=== PATIENT | male | born 1960 | race African-American/Black ===

== ENCOUNTER 2018-03-23 10:28 | Emergency (ER) | payer OTHER ==
[~2018-03-23] VITALS: Ht 177.8 cm; Wt 83.9 kg
[2018-03-23] MEDS ORDERED: SODIUM CHLORIDE 0.9% 1000ML 1,000 ML ONE (10:37)
[2018-03-23] MEDS ORDERED: MORPHINE SULFATE 2 MG/ML SYR IV STA (10:43)
[2018-03-23] MEDS ORDERED: ONDANSETRON HCL 4 MG ORAL DISINTEGRATING TAB PO ONE (10:45)
[2018-03-23] MEDS ORDERED: SODIUM CHLORIDE 0.9% 1000ML 1,000 ML IV SCH (10:45)
[2018-03-23] MEDS ORDERED: SODIUM CHLORIDE 0.9% 1000ML 1,000 ML IV ONE (10:51)
[2018-03-23 10:57] LABS: BASOPHILS % 0.4 % (0.0-1.0); EOSINOPHILS # (AUTO) 0.2 (0.0-0.4); EOSINOPHILS % 1.8 % (0.0-6.0); HEMATOCRIT 45.6 % (38.2-49.6); HEMOGLOBIN 15.5 g/dL (14.0-18.0); LYMPHOCYTES # (AUTO) 3.2 (1.0-3.2); MEAN CORPUSCULAR HEMOGLOBIN 29.2 pg (28-32); MEAN CORPUSCULAR VOLUME 85.9 fL (81-99); MONOCYTES # (AUTO) 0.9 (0.2-0.8); MONOCYTES % 8.4 % (4.4-11.3); NEUTROPHILS # (AUTO) 5.9 (2.1-6.9); NEUTROPHILS % 58.2 % (38.7-80.0); PLATELET COUNT 174 x10e3/uL (140-360); RED BLOOD COUNT 5.31 x10e6/uL (4.3-5.7); RED CELL DISTRIBUTION WIDTH 12.7 % (11.7-14.4)
[2018-03-23] MEDS ORDERED: LORAZEPAM INJ 2 MG/ML VIAL IV STA (11:39)
--- NOTE | 2018-03-23 11:40 | Diagnostic Imaging Report ---
PROCEDURE:X-RAY LEFT WRIST, COMPLETE COMPARISON:None. INDICATIONS:LACERATION TO LATERAL ASPECT OF LEFT WRIST FINDINGS: There are no fractures, dislocations, lytic or blastic lesions. The bones are well-mineralized. Lateral wrist soft tissue laceration is visualized. CONCLUSION: No acute fracture or dislocation of the left wrist. Dictated by: Darío Spence M.D. on 03/23/2018 at 11:43 Electronically approved by: Darío Spence M.D. on 03/23/2018 at 11:43
[2018-03-23] MEDS ORDERED: LORAZEPAM INJ 2 MG/ML VIAL ONE (11:41)
[2018-03-23] MEDS ORDERED: LIDOCAINE HCL 1% LOCAL INJ 20 ML VIAL INJ ONE (12:00)
[2018-03-23] MEDS ORDERED: TETANUS/DIPHTHERIA TOX ADULT 0.5 ML SYR IM ONE (12:45)
[2018-03-23 13:03] VITALS: BP 150/94
== END 2018-03-23 13:24 | disposition home or self-care (01) ==
LOC: ER 10:28
DX: S61.512A Laceration without foreign body of left wrist, initial encounter (principal); W25.XXXA Contact with sharp glass, initial encounter; Y92.008 Other place in unspecified non-institutional (private) residence as the place of occurrence of the external cause
CPT/HCPCS: 12002; 36415; 73110; 85025; 86850; 86900; 90714; 99284; J2060; J2270; J7030